=== PATIENT | female | born 1995 | race Caucasian/White ===

== ENCOUNTER 2016-07-20 13:59 | Emergency (ER) | payer BC ==
[~2016-07-20] VITALS: Ht 162.6 cm; Wt 59.4 kg
[~2016-07-20 13:59] MED LIST: BCPILLS PO; BUDESUS; EPP3/2 PO; FEXO1TAB49 PO
[2016-07-20 14:11] VITALS: TEMP 37.2; Ht 162.6 cm; Wt 59.4 kg
[2016-07-20] MEDS ORDERED: CETI10TA84 PO (14:25)
[2016-07-20] MEDS ORDERED: RHNAQIN NAE (14:25)
[2016-07-20] MEDS ORDERED: CEPHALEXIN MONOHYDRATE 250 MG CAP PO ONE (15:00)
[2016-07-20] MEDS ORDERED: HYDROCODONE/ACETAMOPHEN 5/325MG TAB PO STA (15:00)
--- NOTE | 2016-07-20 15:28 | DIAGNOSTIC IMAGING REPORT ---
LEFT SECOND FINGER 3 VIEWS HISTORY: Left second finger pain. COMPARISON: None. FINDINGS: Nondisplaced fracture at the distal tuft of the left second finger. No dislocation. Distal soft tissue swelling and a laceration. No radiopaque foreign bodies. IMPRESSION: Nondisplaced fracture at the distal tuft of the left second finger. Electronically signed by: Darian Khan M.D. 07/20/2016 3:25 PM Dictated Date/Time: 07/20/2016 3:25 PM
[2016-07-20] MEDS ORDERED: CEPH500C PO (15:41)
[2016-07-20] MEDS ORDERED: HYDR-5688 PO (15:41)
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
[2016-07-20 15:46] VITALS: BP 116/84; PULSE 66; O2SAT 100
== END 2016-07-20 16:01 | disposition home or self-care (01) ==
LOC: C.EDB 14:00 → C.EDD 16:01
DX: S62.661B Nondisplaced fracture of distal phalanx of left index finger, initial encounter for open fracture (principal); Z79.3 Long term (current) use of hormonal contraceptives; Z79.899 Other long term (current) drug therapy; W27.0XXA Contact with workbench tool, initial encounter